=== PATIENT | female | born 1965 | race African-American/Black ===

== ENCOUNTER 2020-10-26 10:55 | Outpatient (REF) | payer OTHER, SELFPAY ==
--- NOTE | 2020-10-26 10:59 | US_ITS ---
EXAMINATION: US VENOUS ULTRASOUND WITH DOPPLER LOWER EXTREMITY, RIGHT and soft tissue ultrasound right lower extremity CLINICAL INFORMATION: Localized swelling, mass and lump COMPARISON: None TECHNIQUE: Ultrasound of the deep veins is performed from the hip to the calf with compression sonography and color and pulse Doppler assessment. Spectral analysis with color-flow imaging is performed. Grayscale and color imaging of the soft tissues in the area of abnormality medial lower leg. FINDINGS: There is normal venous compression and respiratory variation and augmented flow. The visualized common femoral vein, superficial femoral vein, profunda femoral vein, popliteal vein, and the trifurcation region shows no evidence of deep venous thrombosis. There is no significant popliteal fossa cyst. Ultrasound of the soft tissues in the medial lower leg demonstrates no solid or cystic soft tissue mass or fluid collection. US/US extremity nonvascular IMPRESSION: No DVT demonstrated in the right lower extremity. No soft tissue mass or fluid collection seen.
--- NOTE | 2020-10-26 10:59 | US_ITS ---
EXAMINATION: US VENOUS ULTRASOUND WITH DOPPLER LOWER EXTREMITY, RIGHT and soft tissue ultrasound right lower extremity CLINICAL INFORMATION: Localized swelling, mass and lump COMPARISON: None TECHNIQUE: Ultrasound of the deep veins is performed from the hip to the calf with compression sonography and color and pulse Doppler assessment. Spectral analysis with color-flow imaging is performed. Grayscale and color imaging of the soft tissues in the area of abnormality medial lower leg. FINDINGS: There is normal venous compression and respiratory variation and augmented flow. The visualized common femoral vein, superficial femoral vein, profunda femoral vein, popliteal vein, and the trifurcation region shows no evidence of deep venous thrombosis. There is no significant popliteal fossa cyst. Ultrasound of the soft tissues in the medial lower leg demonstrates no solid or cystic soft tissue mass or fluid collection. US/US venous duplex LE RT IMPRESSION: No DVT demonstrated in the right lower extremity. No soft tissue mass or fluid collection seen.
== END 2020-10-26 10:56 | disposition home or self-care (01) ==
LOC: HO.HMGCX 10:55
PROVIDERS: PCP Internal Medicine; Visit Provider Nurse Practitioner Family
DX: R22.40 Localized swelling, mass and lump, unspecified lower limb (principal)
CPT/HCPCS: 76882; 93971

== ENCOUNTER 2021-10-22 11:32 | Outpatient (REF) | payer OTHER, SELFPAY ==
[2021-10-22 13:49] LABS: MANUAL DIFF FLAG NO
[2021-10-22 13:54] LABS: Basophils Absolute Auto 0.1 X10*3/uL (0.0-0.2); Basophils Percent Auto 0.5 % (0-2); Eosinophils Absolute Auto 0.2 X10*3/uL (0.0-0.4); Eosinophils Percent Auto 1.9 % (0-4); Hematocrit 40.4 % (37.0-47.0); Imm Gran Abs Auto 0.03 X10*3/uL (0.00-0.03); Imm Gran Pct Auto 0.3 % (0.0-0.4); Lymphocytes Absolute Auto 2.9 X10*3/uL (1.2-4.9); Lymphocytes Percent Auto 24.8 % (20-40); Mean Corpuscular HGB Conc 32.2 g/dl (31.0-35.0); Mean Corpuscular Hemoglobin 26.5 pg (27.0-33.0); Mean Corpuscular Volume 82.3 fL (80.0-98.0); Mean Platelet Volume 10.7 fL (9.4-12.3); Monocytes Absolute Auto 0.8 X10*3/uL (0.1-1.2); Monocytes Percent Auto 6.9 % (2-11); Neutrophils Absolute Auto 7.6 x10*3/uL (2.0-8.3); Neutrophils Percent Auto 65.6 % (45-73); Platelet Count 316 X10*3/uL (160-400); Red Blood Count 4.91 X10*6/uL (4.20-5.50); Red Cell Distribution Width 14.4 % (11.0-16.0); White Blood Count 11.5 X10*3/uL (4.8-10.8)
[2021-10-22 14:51] LABS: Alanine Aminotransferase 17 U/L (0-31); Albumin Level 3.9 g/dL (3.5-5.0); Alkaline Phosphatase 125 U/L (39-117); Amylase 80 U/L (28-100); Anion Gap 10 (12-20); Aspartate Amino Transferase 15 U/L (5-31); Bilirubin Total 0.2 mg/dL (0.0-1.0); Blood Urea Nitrogen 15 mg/dL (9-16); Carbon Dioxide 27 mmol/L (22-29); Chloride 107 mmol/L (96-108); Cholesterol 275 mg/dL; Estimated Glomerular Filt Rate > 60; Glucose Fasting 75 mg/dL (60-99); HDL Cholesterol 61 mg/dL; LDL Cholesterol Calculated 198 mg/dl; Lipase 46 U/L (8-78); Potassium 4.6 mmol/L (3.3-5.1); Sodium 139 mmol/L (135-145); Total Protein 7.2 g/dL (6.5-8.0); Triglycerides 83 mg/dL
== END 2021-10-22 11:33 | disposition home or self-care (01) ==
LOC: HO.HMGCLDS 11:32
PROVIDERS: PCP Internal Medicine; Visit Provider Internal Medicine
DX: R10.9 Unspecified abdominal pain (principal); E78.5 Hyperlipidemia, unspecified; K21.9 Gastro-esophageal reflux disease without esophagitis; R14.0 Abdominal distension (gaseous)
CPT/HCPCS: 36415; 80053; 80061; 82150; 83690; 85025

== ENCOUNTER 2021-10-24 09:52 | Outpatient (REF) | payer OTHER, SELFPAY ==
[2021-10-24 11:23] LABS: MANUAL DIFF FLAG NO
[2021-10-24 11:28] LABS: Basophils Absolute Auto 0.1 X10*3/uL (0.0-0.2); Basophils Percent Auto 0.6 % (0-2); Eosinophils Absolute Auto 0.3 X10*3/uL (0.0-0.4); Eosinophils Percent Auto 2.1 % (0-4); Hemoglobin 13.6 g/dl (12.0-16.0); Imm Gran Abs Auto 0.05 X10*3/uL (0.00-0.03); Imm Gran Pct Auto 0.4 % (0.0-0.4); Lymphocytes Absolute Auto 3.4 X10*3/uL (1.2-4.9); Lymphocytes Percent Auto 25.2 % (20-40); Mean Corpuscular HGB Conc 31.6 g/dl (31.0-35.0); Mean Corpuscular Hemoglobin 26.3 pg (27.0-33.0); Mean Platelet Volume 10.8 fL (9.4-12.3); Monocytes Absolute Auto 0.8 X10*3/uL (0.1-1.2); Monocytes Percent Auto 5.6 % (2-11); Neutrophils Absolute Auto 8.9 x10*3/uL (2.0-8.3); Neutrophils Percent Auto 66.1 % (45-73); Platelet Count 348 X10*3/uL (160-400); Red Blood Count 5.18 X10*6/uL (4.20-5.50); Red Cell Distribution Width 14.4 % (11.0-16.0); White Blood Count 13.5 X10*3/uL (4.8-10.8)
[2021-10-24 11:59] LABS: Vitamin D 25-OH Total 9.7 ng/mL (>30)
[2021-10-24 12:02] LABS: Alanine Aminotransferase 17 U/L (0-31); Albumin Level 3.9 g/dL (3.5-5.0); Alkaline Phosphatase 132 U/L (39-117); Anion Gap 8 (12-20); Aspartate Amino Transferase 16 U/L (5-31); Bilirubin Total < 0.2 mg/dL (0.0-1.0); Blood Urea Nitrogen 23 mg/dL (9-16); Carbon Dioxide 27 mmol/L (22-29); Chloride 109 mmol/L (96-108); Estimated Glomerular Filt Rate 59; Glucose Random 88 mg/dL (60-115); Potassium 5.2 mmol/L (3.3-5.1); Sodium 139 mmol/L (135-145); Total Protein 7.1 g/dL (6.5-8.0)
[2021-10-24 12:16] LABS: Calcium 12.7 mg/dL (8.4-10.2)
[2021-10-25 14:07] LABS: Calcium (PTHI) 12.8 mg/dL (8.6-10.4); PTHI 304 pg/mL (14-64)
[2021-10-25 15:41] LABS: Calcium, Ionized 6.9 mg/dL (4.8-5.6)
== END 2021-10-24 09:53 | disposition home or self-care (01) ==
LOC: HO.HMGCLDS 09:52
PROVIDERS: PCP Internal Medicine; Visit Provider Nurse Practitioner Family
DX: E83.52 Hypercalcemia (principal); E87.5 Hyperkalemia
CPT/HCPCS: 36415; 80053; 82306; 82330; 83970; 85025

== ENCOUNTER 2021-11-19 15:10 | Emergency (ER) | payer OTHER, SELFPAY ==
--- NOTE | ~2021-11-19 | XR_ITS ---
EXAMINATION: XR WRIST, RIGHT CLINICAL INFORMATION: Wrist pain. COMPARISON: None TECHNIQUE: 4 views of the right wrist. FINDINGS: The bones and soft tissues are normal. No fracture. Alignment is anatomic with normal joint spaces. No erosions or abnormal soft tissue calcifications. XR/XR wrist RT 2V IMPRESSION: Normal right wrist.
[2021-11-19 16:47] VITALS: BP 134/62; PULSE 70; RESP 18; TEMP 37; O2SAT 99; BMI 30.9
--- NOTE | 2021-11-19 17:37 | ED_ITS ---
HPI - Extremity Problem General Chief complaint: Extremity Injury, Upper Stated complaint: wrist inj Time Seen by Provider: 11/19/21 17:21 Source: patient Mode of arrival: ambulatory Limitations: no limitations History of Present Illness HPI Narrative: Patient is a 56 year old female presenting to the emergency department today with right wrist pain. Patient states that she slipped and fell and is now having pain in her right wrist. Patient denies hitting her head in the incident. Patient denies any loss of consciousness with the incident. Patient denies any dizziness, lightheadedness, abdominal pain, nausea, vomiting, fever, chills, blurry vision, double vision, loss of vision, chest pain, difficulty breathing, shortness of breath, back pain, night sweats, pain with urination, increased urinary frequency, increased urinary urgency, blood in [his/her] urine or stool, syncope or a near syncopal episode, bowel incontinence, bladder incontinence, bowel retention, bladder retention, or any other complaints at this time. MD Complaint: extremity pain Onset (ago): hour(s) Pain Consistency: constant Location: right and other (wrist) Severity scale (1-10): 3 Quality: aching and dull Radiation: none Relieving factors: nothing Exacerbating factors: range of motion Associated symptoms: denies other symptoms Related Data Home Medications Medication Instructions Recorded Confirmed escitalopram oxalate 20 mg tablet 20 mg PO DAILY 10/26/20 10/22/21 hydroxyzine pamoate 50 mg capsule 50 mg PO TID 10/26/20 10/22/21 oxcarbazepine 600 mg tablet 600 mg PO BID 10/26/20 10/22/21 gabapentin 100 mg capsule 100 mg PO DAILY 01/04/21 10/22/21 prazosin 5 mg capsule 10 mg PO BEDTIME 10/22/21 10/22/21 Previous Rx's Medication Instructions Recorded indomethacin 25 mg capsule 25 mg PO BID PRN #14 cap 01/04/21 dicyclomine 20 mg tablet 20 mg PO TID #90 tab 10/22/21 cholecalciferol (vitamin D3) 1,250 1,250 mcg PO QWEEK #12 cap 10/24/21 mcg (50,000 unit) capsule pantoprazole 40 mg tablet,delayed 40 mg PO DAILY #30 tab 11/18/21 release Allergies Allergy/AdvReac Type Severity Reaction Status Date / Time povidone-iodine Allergy Unknown RASH Verified 10/22/21 11:15 [From BETADINE] soap [From BETADINE] Allergy Unknown RASH Verified 10/22/21 11:15 Review of Systems Constitutional: Constitutional: Reports no additional constitutional complaints, Denies chills, Denies fever(s) and Denies night sweats Eyes: Eyes: Reports no additional eye complaints, Denies blurry vision, Denies change in vision, Denies diplopia, Denies eye discharge, Denies loss of vision and Denies eye pain ENT: Denies dizziness Cardiovascular: Cardiovascular: Reports no additional cardiovascular complaints, Denies chest pain, Denies lightheadedness, Denies Loss of Consciousness and Denies dyspnea Respiratory: Respiratory: Reports no additional respiratory complaints and Denies dyspnea Gastrointestinal: Gastrointestinal: Reports no additional gastrointestinal complaints, Denies abdominal pain, Denies melena, Denies hematochezia, Denies change in bowel habits and Denies change in stool character Genitourinary: Genitourinary: Denies hematuria, Denies urinary frequency, Denies dysuria, Denies urinary incontinence, Denies urinary hesitancy and Denies urinary urgency Musculoskeletal: Musculoskeletal: Reports no additional musculoskeletal complaints, Denies numbness and Denies tingling Comments: right wrist pain Neurologic: Denies dizziness, Denies loss of vision, Denies numbness and Denies tingling Psychiatric: Psychiatric: Reports no additional psychiatric complaints Endocrine: Endocrine: Reports no additional endocrine complaints Hematologic/Lymphatic: Hematologic/Lymphatic: Reports no additional hematologic/lymphatic complaints Allergic/Immunologic: Allergic/Immunologic: Reports no additional allergic/immunologic complaints [facility] Past Medical History Attestation statement: The following information was validated with the patient. Source: old records reviewed Medical History Alcoholism Dyslipidemia Gallstones History of cocaine use Hyperparathyroidism Lumbar disc herniation Pain of right lower extremity PTSD (post-traumatic stress disorder) Vitamin D deficiency Surgical History History of tubal ligation Family History Family History Father CVA (cerebral vascular accident) Essential hypertension Brother Crohn's disease Maternal Aunt Substance use disorder Mental health disorder Maternal Uncle Substance use disorder Mental health disorder Paternal Uncle Substance use disorder Mental health disorder Paternal Aunt Substance use disorder Mental health disorder Maternal Grandmother Mental health disorder Mother Mental health disorder Social History Social History Housing: Apartment Alcohol intake: former Patient Tobacco Use Status: Current everyday Tobacco user Cigarettes Per Day: 10 e-Cigarette/Vaping Use: Never Used Advance Directives: No Advance Directives Information Provided: No Patient : No service: No Current occupational status: student Physical Exam Vital Signs: Vital Signs: Last Vital Signs Temp 98.6 F 11/19/21 16:47 Pulse 70 11/19/21 16:47 Resp 18 11/19/21 16:47 BP 134/62 11/19/21 16:47 Pulse Ox 99 11/19/21 16:47 BMI result Body Mass Index 30.9 Const: General: cooperative, no acute distress, alert and awake Nutritional Appearance: well nourished Orientation/consciousness: patient oriented x3 Limitations: no limitations HENMT: Head: Yes normal to inspection and Yes atraumatic Ears: hearing grossly normal bilaterally and external ears normal General nose exam: Normal external nose present, no nasal discharge noted and no epistaxis Face and sinus: Yes normal facial exam, No abrasion and No laceration Mouth: Normal oral and palatal mucosa present, no drooling and no muffled voice Eyes: General: appearance normal, both eyes and all related structures Periorbital: periorbital findings normal Eyelids: Yes eyelids normal Conjunctivae: conjunctivae normal Pupils: Equal, round and reactive pupils present EOM: EOMs intact bilaterally Neck: Neck: Yes normal visual inspection, Yes full ROM and Yes no lymphadenopathy Chest: Chest palpation & inspection: normal inspection of the chest Resp: Effort & Inspection: normal respiratory effort and able to speak in complete sentences GI: Inspection: Yes normal to inspection Neuro: General: patient oriented x3 and moves all extremities Cranial nerves: Yes Equal, round and reactive pupils present Cognition (Neuro): normal cognition Motor exam (neuro): 5/5 motor strength present throughout Sensory Exam: Normal double simultaneous stimulation for sensation Coordination: [id number] test normal Extrem: Other: right wrist pain to palpation and movement General: Yes normal to inspection, Yes full ROM and Yes capillary refill normal Psych: Appearance: grossly normal Mental Status: mental status grossly normal Affect: normal affect Attitude: cooperative Thought process: Normal thought process present Thought content: Normal thought content present Insight: Good insight present (Psych) MDM - Extremity (Nontraumatic) MDM Narrative Medical decision making narrative: Patient is a 56 year old female presenting to the emergency department today with right wrist pain. Patient's physical exam showed tenderness to palpation and with movement of the right wrist but was otherwise unremarkable. Patient's ROM and PMS was intact to the right upper extremity. Patient's right wrist x-ray showed no acute process. I explained my physical exam findings as well as all test results to the patient. I answered all questions asked by the patient. Patient was placed in a velcro right wrist splint and in a right wrist sling, without incident. Patient's PMS was in tact prior to and after splint and sling placement. Patient stated that having the wrist in a sling and splint helped the pain significantly. I stressed the importance of the patient following up with her primary care provider and an orthopedist as needed. I stressed the importance of the patient returning to the emergency department immediately if her symptoms were to worsen or if she were to develop any dizziness, shortness of breath, difficulty breathing, chest pain, blurry vision, loss of vision, nausea, vomiting, abdominal pain, fever, chills, back pain, or any other complai nts. Patient verbalized agreement and understanding with this treatment plan and discharge. Differential Diagnosis Differential diagnosis: Unlikely gout (fracture, sprain, strain) Medical Records Attestation: I reviewed the patient's medical records. Imaging Data Wrist x-ray: Attestation: I personally reviewed and interpreted this imaging study as follows: Radiologist's impression: EXAMINATION: XR WRIST, RIGHT CLINICAL INFORMATION: Wrist pain.? COMPARISON: None? TECHNIQUE: 4 views of the right wrist. FINDINGS: The bones and soft tissues are normal. No fracture. Alignment is anatomic with normal joint spaces. No erosions or abnormal soft tissue calcifications.? XR/XR wrist RT 2V IMPRESSION: Normal right wrist. Dictated By: JOSHUA KENNEDY MD Signed By: Electronically signed by OJSHUA KENNEDY MD 11/19/21 1360 Procedures Orthopedic Splinting/Casting Injury #1: Side: right Upper Extremity Injury Location: wrist Upper Extremity Immobilizer: wrist splint (with sling) Discharge Plan Discharge Clinical Impression: Acute wrist pain, Sprain of wrist, right Patient Disposition: Home, Self-Care Instructions: Wrist Injury (ED) Additional Instructions: Call to schedule a follow up appointment with an Orthopedic provider. Follow up with your primary care provider. Return to the emergency department immediately if your symptoms worsen or if you develop any dizziness, shortness of breath, difficulty breathing, chest pain, blurry vision, loss of vision, nausea, vomiting, abdominal pain, fever, chills, back pain, or any other complaints. Prescriptions: No Action cholecalciferol (vitamin D3) 1,250 mcg (50,000 unit) capsule 1,250 mcg PO QWEEK Qty: 12 0RF pantoprazole 40 mg tablet,delayed release (DR/EC) 40 mg PO DAILY Qty: 30 1RF hydroxyzine pamoate 50 mg capsule 50 mg PO TID 0RF oxcarbazepine 600 mg tablet 600 mg PO BID 0RF escitalopram oxalate 20 mg tablet 20 mg PO DAILY 0RF gabapentin 100 mg capsule 100 mg PO DAILY 0RF indomethacin 25 mg capsule 25 mg PO BID PRN (Reason: foot pain) Qty: 14 0RF Rx Instructions: administer with food or milk prazosin 5 mg capsule 10 mg PO BEDTIME 0RF dicyclomine 20 mg tablet 20 mg PO TID Qty: 90 0RF Rx Instructions: take 15 mins ac Referrals: Audrey Polk MD [Primary Care Provider] - 2 days Larissa Patterson MD [Physician] - 2 days Print Language: Colombian
== END 2021-11-19 18:39 | disposition home or self-care (01) ==
PROVIDERS: Emergency Provider Emergency Medicine Emergency Medical Services; PCP Internal Medicine
DX: S63.501A Unspecified sprain of right wrist, initial encounter (principal); W01.0XXA Fall on same level from slipping, tripping and stumbling without subsequent striking against object, initial encounter; Y93.89 Activity, other specified; Y92.9 Unspecified place or not applicable; Y99.9 Unspecified external cause status
CPT/HCPCS: 73100; 99283; 99284

== ENCOUNTER → 2021-11-26 11:32 | Outpatient (BNVA) | payer OTHER, SELFPAY | PROVIDERS: PCP Internal Medicine; Referring Provider Internal Medicine; Visit Provider Physician Assistant ==

== ENCOUNTER 2021-11-26 12:21 | Outpatient (REF) | payer OTHER, SELFPAY ==
[2021-11-26 13:37] LABS: Blood Urea Nitrogen 11 mg/dL (9-16); Estimated Glomerular Filt Rate > 60
== END 2021-11-26 12:22 | disposition home or self-care (01) ==
LOC: HO.WFDLDS 12:21
PROVIDERS: Visit Provider Physician Assistant
DX: K21.9 Gastro-esophageal reflux disease without esophagitis (principal); R93.5 Abnormal findings on diagnostic imaging of other abdominal regions, including retroperitoneum
CPT/HCPCS: 36415; 82565; 84520; 99202

== ENCOUNTER 2021-12-17 14:05 | Outpatient (REF) | payer OTHER, SELFPAY ==
--- NOTE | ~2021-12-17 | CT_ITS ---
EXAMINATION: CT ABDOMEN AND PELVIS WITH CONTRAST CLINICAL INFORMATION: Abnormal findings on diagnostic imaging. COMPARISON: Ultrasound gallbladder abdomen 02/08/2020. TECHNIQUE: Multidetector volumetric images were obtained from the superior aspect of the liver through the pubic symphysis following administration 85 mL of Omnipaque 350 intravenous contrast. Sagittal and coronal reformatted images were obtained on the technologist's workstation. Oral contrast: No This CT examination was performed using dose optimization techniques as appropriate, variously including the following: *Automated exposure control *Adjustment of mA and/or kV according to patient size (this includes techniques or standardized protocols for targeted exams where dose is matched to indication/reason for exam; i.e. extremities or head) *Use of iterative reconstruction technique DLP: 1153 mGy-cm. FINDINGS: LUNG BASES: The lung bases are clear. The heart size is normal. LIVER, GALLBLADDER, AND BILIARY TREE: The liver is normal in size, shape, and attenuation. There are punctate 2 small hypodense nonenhancing liver lesions with largest partial exophytic lesion right hepatic lobe segment 7.8 x 6.8 cm and 8 Hounsfield units consistent with cysts. The gallbladder is contracted with a solitary dense radiopaque 1.3 cm calculi. PANCREAS: Unremarkable. SPLEEN: Unremarkable. ADRENAL GLANDS: Unremarkable. KIDNEYS AND URETERS: The kidneys are normal in size, shape, and attenuation. No hydronephrosis, hydroureter, or calculi seen. No perinephric stranding. There are bilateral renal cysts. Largest cyst midpole right kidney measures 2.6 cm. BLADDER: Unremarkable. GASTROINTESTINAL TRACT: There is scattered stool, diverticuli and gas seen in colon. Fluid filled nondilated small bowel loops are visualized. The stomach is prominent with moderate air-fluid level. There is pneumatosis like appearance but no pneumatosis suspected. ABDOMINAL WALL: No significant hernia is appreciated. LYMPH NODES: There are small shotty lymph nodes in the upper retroperitoneum. Also visualized are small mesenteric lymph nodes with largest one measuring 1.1 cm axial image 117/3. VASCULAR: The abdominal aorta is normal caliber. PELVIC VISCERA: Unremarkable. OSSEOUS STRUCTURES: No lytic or sclerotic process seen. There is degenerative L3-L4 disc disease. CT/CT abdomen pelvis w con IMPRESSION: No acute intra-abdominal process seen. Multiple liver cysts and renal cysts. No radiopaque urolith or hydroureteronephrosis. Fleischner guidelines were followed.
[2021-12-17] MEDS: Sorbitol/Mannit/Xanth Imaging 500 ML LIQUID 1500 ML PO (15:47)
[2021-12-17] MEDS: iohexoL 350 MG/ML 100 ML INFUS..BTL IV (15:47)
== END 2021-12-17 14:06 | disposition home or self-care (01) ==
LOC: HO.US 14:05
PROVIDERS: PCP Internal Medicine; Visit Provider Physician Assistant
DX: R93.5 Abnormal findings on diagnostic imaging of other abdominal regions, including retroperitoneum (principal)
CPT/HCPCS: 74177; Q9967

== ENCOUNTER 2022-01-02 10:42 | Day surgery (SDC) | payer OTHER, SELFPAY ==
--- NOTE | 2022-01-01 09:47 | HO.ANESPROP2 ---
Documented by User: Luz Colon NP 01/01/22 09:52 HPI - Anesthesia Eval Consult details Narrative: 56yo F for Upper Endoscopy and Colonoscopy Hx of ETOH and cocaine use disorder - ? last used PMFSH Active Problems Active Problems: All Active Problems (Updated 12/30/21 @ 08:15 by Malena Baer RN) Lower leg mass (Acute) GERD (gastroesophageal reflux disease) (Acute) Hypercalcemia (Acute) Abnormal CT of the abdomen (Acute) Vitamin D deficiency (Acute) Hyperparathyroidism (Acute) Dyslipidemia (Acute) Pain of right lower extremity (Acute) Gallstones (Acute) PTSD (post-traumatic stress disorder) (Acute) Past Medical History Medical History Abnormal CT of the abdomen Alcoholism Dyslipidemia Gallstones GERD (gastroesophageal reflux disease) History of cocaine use Hyperparathyroidism Lumbar disc herniation Pain of right lower extremity PTSD (post-traumatic stress disorder) Vitamin D deficiency Family History Family History Father CVA (cerebral vascular accident) Essential hypertension Brother Crohn's disease Maternal Aunt Substance use disorder Mental health disorder Maternal Uncle Substance use disorder Mental health disorder Paternal Uncle Substance use disorder Mental health disorder Paternal Aunt Substance use disorder Mental health disorder Maternal Grandmother Mental health disorder Mother Mental health disorder Surgical History Surgical History History of tubal ligation Social History Social History Housing: Apartment Alcohol intake: former Patient Tobacco Use Status: Current everyday Tobacco user Tobacco use type: Cigarette Cigarettes Per Day: 10 e-Cigarette/Vaping Use: Never Used service: No Current occupational status: student Meds Allergies Allergy/AdvReac Type Severity Reaction Status Date / Time povidone-iodine Allergy Unknown RASH Verified 11/26/21 11:34 [From BETADINE] soap [From BETADINE] Allergy Unknown RASH Verified 11/26/21 11:34 Home Medications Medication Instructions Recorded Confirmed Last Taken Type escitalopram oxalate 20 mg tablet 20 mg PO DAILY 10/26/20 12/30/21 Unknown History hydroxyzine pamoate 50 mg capsule 50 mg PO TID 10/26/20 12/30/21 Unknown History gabapentin 100 mg capsule 100 mg PO DAILY 01/04/21 12/30/21 Unknown History prazosin 5 mg capsule 10 mg PO BEDTIME 10/22/21 12/30/21 Unknown History pantoprazole 40 mg tablet,delayed 40 mg PO DAILY 11/26/21 12/30/21 Unknown History release Exam Exam Date and Time: January 01, 2022 0958 Pertinent Lab Results Pertinent Lab Results: Laboratory Tests 10/24/21 10/24/21 11/26/21 09:57 09:57 12:28 WBC 13.5 H Hgb 13.6 Hct 43.0 Plt Count 348 Sodium 139 Potassium 5.2 H Chloride 109 H Carbon Dioxide 27 BUN 11 D Creatinine 0.79 Assessment and Plan Assessment Anesthesia Assessment: Chart Reviewed Documented by User: Lauri Laguna MD 01/02/22 16:51 HPI - Anesthesia Eval Consult details Narrative: 56yo F for Upper Endoscopy and Colonoscopy Hx of ETOH and cocaine use disorder - As per patient has not used cocaine in a few years back pain radiation to right LE marijuana yesterday PMFSH Past Medical History Medical History Abnormal CT of the abdomen Alcoholism Dyslipidemia Gallstones GERD (gastroesophageal reflux disease) History of cocaine use Hyperparathyroidism Lumbar disc herniation Pain of right lower extremity PTSD (post-traumatic stress disorder) Vitamin D deficiency Family History Family History Father CVA (cerebral vascular accident) Essential hypertension Brother Crohn's disease Maternal Aunt Substance use disorder Mental health disorder Maternal Uncle Substance use disorder Mental health disorder Paternal Uncle Substance use disorder Mental health disorder Paternal Aunt Substance use disorder Mental health disorder Maternal Grandmother Mental health disorder Mother Mental health disorder Family history of problems with anesthesia: No Surgical History Surgical History History of tubal ligation History of Problems with Anesthesia: No Social History Social History Housing: Apartment Alcohol intake: former Patient Tobacco Use Status: Current everyday Tobacco user Tobacco use type: Cigarette Cigarettes Per Day: 10 e-Cigarette/Vaping Use: Never Used service: No Current occupational status: student Meds Allergies Allergy/AdvReac Type Severity Reaction Status Date / Time povidone-iodine Allergy Unknown RASH Verified 11/26/21 11:34 [From BETADINE] soap [From BETADINE] Allergy Unknown RASH Verified 11/26/21 11:34 Home Medications Medication Instructions Recorded Confirmed Last Taken Type escitalopram oxalate 20 mg tablet 20 mg PO DAILY 10/26/20 12/30/21 Unknown History hydroxyzine pamoate 50 mg capsule 50 mg PO TID 10/26/20 12/30/21 Unknown History gabapentin 100 mg capsule 100 mg PO DAILY 01/04/21 12/30/21 Unknown History prazosin 5 mg capsule 10 mg PO BEDTIME 10/22/21 12/30/21 Unknown History pantoprazole 40 mg tablet,delayed 40 mg PO DAILY 11/26/21 12/30/21 Unknown History release Exam Airway Mallampati Class: II TM Dist: >3cm Neck ROM: Full Loose/Missing/Broken Teeth: Yes (Chipped ) Heart: rrr Lungs: bl breath sounds Assessment and Plan Assessment Anesthesia Assessment: Anesthesia Plan Discussed Final Anesthetic Review Family History of Problems with Anesthesia: No History of Problems with Anesthesia: No NPO: Yes ASA Class: II Final Preanesthetic Review: Meds/Allgs Chart Reviewed, Consent Obtained/Reviewed and Anes Risks/Benef Reviewed Patient Risk: Intermediate Procedure Risk: Intermediate Anesthetic Plan Anesthetic Plan: MAC: Disposition: Standard PACU
--- NOTE | 2022-01-02 10:47 | P.HPSUR_ITS ---
Pre-Procedural Eval Section A Date of Service: 01/02/22 Section B Chief Complaint: abdominal pain, diarrhea and GERD Relevant Family History (Specify if Yes): No Relevant Social History: None Present Medications: see Short Stay Collaborative assessment Medical History: Significant History (Abnormal CT of the abdomen Alcoholism Dyslipidemia Gallstones GERD (gastroesophageal reflux disease) History of co lily use Hyperparathyroidism Lumbar disc herniation Pain of right lower extremity PTSD (post-traumatic stress disorder) Vitamin D deficiency) History of Previous Operations: Relevant previous surgery/procedure and date(s) ( History of tubal ligation) Allergies: Allergies Allergy/AdvReac Type Severity Reaction Status Date / Time povidone-iodine Allergy Unknown RASH Verified 11/26/21 11:34 [From BETADINE] soap [From BETADINE] Allergy Unknown RASH Verified 11/26/21 11:34 Review of Systems Sugical H&P ROS: Negative: Constitution, Cardiovascular, Respiratory, Neurological, Psychiatric, Hem-Onc, Allergic/Immunologic, Gastrointestinal, Genitourinary, Musculoskeletal, Integumentary, Endocrine and Eyes/Ears/Nose/Throat Exam Surgical H&P Exam: Normal: HEENT, Normal: Heart, Normal: Lungs, Normal: E xtremities, Normal: Abdomen, Normal: Skin and Normal: Neurological Plan Diagnosis/Plan: Unchanged I have reviewed the history and physical and performed a pertinent physical examination on my patient. No changes have occurred unless specified.
[2022-01-02 11:02] VITALS: BMI 30.9
[2022-01-02 11:20] VITALS: BP 91/64; PULSE 75; RESP 18; TEMP 36.6; O2SAT 97
[2022-01-02 11:38] VITALS: BP 91/64; PULSE 75; RESP 18; TEMP 36.6; O2SAT 97
[2022-01-02] MEDS: Lactated Ringers 1,000 ML 100 ML IVCONT (11:42)
--- NOTE | 2022-01-02 12:27 | PM.OP ---
Brief Operative Note Date of Service: 01/02/22 Pre-op diagnosis: diarrhea, abdominal pain, GERD Post-op diagnosis: same Procedure: see op note Surgeon: Rk Abdi MD Anesthesia: MAC Was an Catalyst Unit Operator used for this Procedure?: No Estimated blood loss (mL): 0 Condition: stable Disposition: PACU
--- NOTE | 2022-01-02 12:28 | W.PM.OPN ---
Operative Note Operative Note Date of Service: 01/02/22 Narrative: Operative Information Procedure Description: EGD, Colonoscopy Indication: [] Anesthesia: MAC FLEXIBLE TRANSORAL UPPER GASTROINTESTINAL ENDOSCOPY AND COLONOSCOPY PROCEDURE NOTE UPPER ENDOSCOPY Consent: Indications for the procedure and potential complications of bleeding, perforation, reaction to medications and missed diagnosis were discussed with the patient and informed consent was obtained. Instrument: Olympus GIF H 190 J mid size upper endoscope Monitoring: Vital signs and clinical assessment, continuous EKG monitoring, Pulse oximetry, Carbon Dioxide monitoring and blood pressure monitoring were done throughout the procedure. Procedure: The patient was placed in the left lateral decubitis position and pre-procedure medications were administered and a bite block was placed. The endoscope was inserted into the mouth and advanced under direct vision to the third part of duodenum. A careful inspection was made as the upper endoscope was withdrawn including a retroflexed examination of the proximal stomach; Findings and interventions are described below. Findings: Larynx:normal Esophagus: GE junction at 40 cm, diaphragm hiatus at 40 cm, schatzki ring noted with bogginess and erythema at GEJ, bx taken as well as random esophagus Stomach: Patchy gastritis. Biopsies were obtained. Grade 2 flap valve on retroflexed examination of the cardia. Duodenum: Several small ulcers in bulb with duodenitis and erythema, bx taken Intervention: Biopsies as noted above COLONOSCOPY Instrument: Olympus variable stiffness pediatric scope 190L Colonoscopy Monitoring: Vital signs and clinical assessment, continuous EKG monitoring, Pulse oximetry, Carbon Dioxide monitoring and blood pressure monitoring were done throughout the procedure. Colon withdrawal time was 13 minutes. Procedure: The patient was placed in the left lateral decubitis position and pre-procedure medications were administered. After a digital rectal examination of the ano-rectum, the video colonoscope was inserted into the rectum and advanced through the colon to the cecum/TI. The colonoscope was slowly withdrawn in a retrograde panoramic fashion and the colon mucosa was carefully examined including a retroflexed view of the rectum. Findings and interventions are described below. Procedure Difficulty:moderate Findings: Terminal Ileum- unable to intubate due to swelling and edema in cecum Cecum: mucosa with several erosions and small ulcers with edema and swelling with narrowing of the colon distal to the cecum Ascending Colon: erythema and edema in proximal ascending colon, few diverticula seen Transverse Colon -normal, bx taken Descending Colon:normal, bx taken Sigmoid Colon: normal, bx taken Rectum: Retroflexion with small internal hemorrhoids, grade I, bx taken Anorectum - normal Colon preparation: [place] Bowel Preparation Scale Right colon; 2 Transverse colon: 3 Left colon; 3 (0 = Unprepared colon segment with mucosa not seen due to solid stool that cannot be cleared. 1 = Portion of mucosa of the colon segment seen, but other areas of the colon segment not well seen due to staining, residual stool and/or opaque liquid. 2 = Minor amount of residual staining, small fragments of stool and/or opaque liquid, but mucosa of colon segment seen well. 3 = Entire mucosa of colon segment seen well with no residual staining, small fragments of stool or opaque liquid) Impression and Post Procedure Diagnosis: Endoscopy Findings: schatzki ring gastritis duodenal ucleration and erosions esophagitis Colonoscopy Findings: colitis, suspicious for crohns, ddx: infiltrative disease e.g sarcoid, amyloid, lymphoma, mastocytosis, eosinophilic colitis internal hemorrhoids Plan: Await Pathology results Repeat Colonoscopy in 1-2 yr or earlier if clinically indicated due to colitis Lo fiber diet avoid straining at stool, epsom salts and sitz bath, anusol supps or cream may consider CTe vs MRe or caspule endoscopy if crohns confirmed then will need biolgic, entyvio may be a good option Above findings were reviewed with the patient and relevant handouts were provided if indicated.
[2022-01-02 12:33] VITALS: BP 97/79; PULSE 91; RESP 16; TEMP 37.4; O2SAT 93
[2022-01-02 12:48] VITALS: BP 105/51; PULSE 75; RESP 18; TEMP 37.4; O2SAT 96
== END 2022-01-02 13:26 | disposition home or self-care (01) ==
PROVIDERS: PCP Internal Medicine; Visit Provider Internal Medicine Gastroenterology
PROC: (CPT 45380; principal; 2022-01-02 11:50)
DX: R93.5 Abnormal findings on diagnostic imaging of other abdominal regions, including retroperitoneum (principal); K57.30 Diverticulosis of large intestine without perforation or abscess without bleeding; K52.82 Eosinophilic colitis; K64.0 First degree hemorrhoids; K21.9 Gastro-esophageal reflux disease without esophagitis; K22.2 Esophageal obstruction; K26.9 Duodenal ulcer, unspecified as acute or chronic, without hemorrhage or perforation; K29.80 Duodenitis without bleeding; K29.50 Unspecified chronic gastritis without bleeding; K44.9 Diaphragmatic hernia without obstruction or gangrene; E78.5 Hyperlipidemia, unspecified; E21.3 Hyperparathyroidism, unspecified; E55.9 Vitamin D deficiency, unspecified; Z79.899 Other long term (current) drug therapy; F10.20 Alcohol dependence, uncomplicated; F14.11 Cocaine abuse, in remission; F17.210 Nicotine dependence, cigarettes, uncomplicated
CPT/HCPCS: 45380; 43239; 88305; 88342; J3010

== ENCOUNTER → 2022-01-21 15:08 | Outpatient (BNVA) | payer OTHER, SELFPAY | PROVIDERS: PCP Internal Medicine; Visit Provider Physician Assistant | DX: K29.80 Duodenitis without bleeding (principal); K26.9 Duodenal ulcer, unspecified as acute or chronic, without hemorrhage or perforation; K29.70 Gastritis, unspecified, without bleeding; K57.90 Diverticulosis of intestine, part unspecified, without perforation or abscess without bleeding; K59.00 Constipation, unspecified; K21.9 Gastro-esophageal reflux disease without esophagitis; Z79.899 Other long term (current) drug therapy; Z98.890 Other specified postprocedural states | CPT/HCPCS: 99212 ==

== ENCOUNTER 2022-02-05 08:43 | Outpatient (REF) | payer OTHER, SELFPAY ==
[2022-02-05 10:02] LABS: Blood Urea Nitrogen 16 mg/dL (9-16); Estimated Glomerular Filt Rate > 60; Iron 46 mcg/dL (30-160); Percent Iron Saturation 13 % (15-50); Potassium 4.8 mmol/L (3.3-5.1); Total Iron Binding Capacity 358 mcg/dL (228-428); Unsaturated Iron Binding 312 ug/dL
[2022-02-05 10:18] LABS: HBS Num1 89.39 mIU/mL (0-7.99); HBc Num1 0.08 S/CO (0.00-0.79); HBsAGNum1 0.17 S/CO (0.00-0.99); Hepatitis A Antibody IgM 0.25 Index (0-0.79); Hepatitis B Core Antibody Nonreactive (Nonreactive); Hepatitis B Surface Antigen Negative (Negative); ~HepC Num1 0.13 S/CO (0.00-0.79); ~Hepatitis A Antibody IgM Nonreactive (Nonreactive); ~Hepatitis B Surface Antibody REACTIVE (Nonreactive); ~Hepatitis C Antibody Nonreactive (Nonreactive)
[2022-02-05 10:23] LABS: Vitamin D 25-OH Total 15.3 ng/mL (>30)
[2022-02-05 10:40] LABS: Folate 4.8 ng/mL (> or = 4.0); Vitamin B12 374 pg/mL (200-900)
[2022-02-07 15:01] LABS: TS Negative Control Passed; TS Panel A 0; TS Panel B 1; TS Positive Control Passed; TSpotTB Negative (Negative)
[2022-02-09 18:36] LABS: EBV Source Whole Blood
[2022-02-11 20:57] LABS: Zinc 88 mcg/dL (60-130)
[2022-02-14 22:11] LABS: Parathyroid Hormone Related Pr 13 pg/mL (11-20)
== END 2022-02-05 08:44 | disposition home or self-care (01) ==
LOC: HO.LAB 08:43
PROVIDERS: PCP Internal Medicine; Visit Provider Physician Assistant
DX: R93.5 Abnormal findings on diagnostic imaging of other abdominal regions, including retroperitoneum (principal); K59.00 Constipation, unspecified; K21.9 Gastro-esophageal reflux disease without esophagitis; E83.52 Hypercalcemia; D64.9 Anemia, unspecified; R93.3 Abnormal findings on diagnostic imaging of other parts of digestive tract; E55.9 Vitamin D deficiency, unspecified; R79.89 Other specified abnormal findings of blood chemistry; E78.5 Hyperlipidemia, unspecified
CPT/HCPCS: 36415; 82306; 82565; 82607; 82746; 83519; 83540; 84132; 84520; 84630; 86481; 86704; 86706; 86709; 86803; 87340; 87798

== ENCOUNTER 2022-02-17 13:40 | Outpatient (REF) | payer OTHER, SELFPAY ==
--- NOTE | ~2022-02-17 | CT_ITS ---
EXAMINATION: CT ENTEROGRAPHY ABDOMEN AND PELVIS WITH NONCONTRAST CLINICAL INFORMATION: Iron deficiency COMPARISON: Previous CT of the abdomen and pelvis November 2021 TECHNIQUE: Study performed with oral VoLumen (1350 mL) and 480 mL of water to distend the abdomen. The patient was injected with 85 mL Omnipaque 350 intravenous contrast which was administered without adverse effect. Coronal and sagittal reformatted images were obtained at the technologist's workstation. This CT examination was performed using dose optimization techniques as appropriate, variously including the following: *Automated exposure control *Adjustment of mA and/or kV according to patient size (this includes techniques or standardized protocols for targeted exams where dose is matched to indication/reason for exam; i.e. extremities or head) *Use of iterative reconstruction technique DLP: 563 mGy-cm FINDINGS: GASTROINTESTINAL FINDINGS: Stomach: Well-distended and normal in appearance. Small intestine: There is edema in the wall of the terminal ileum. There is mild dilatation of the terminal ileum. The coastal enhancement cannot be assessed without IV contrast however appearance is suggestive of active inflammation. Large intestine: Nonspecific fatty deposition in the wall of the cecum. Mild diverticulosis of the colon. No evidence of active colitis or diverticulitis. Normal appendix. Increased left perianal soft tissue questionable for inflammation or fissure. Additional findings: No abnormal enhancement of the vasa recta or significant mesenteric or retroperitoneal lymphadenopathy is seen. No abdominal abscess or fistulous tract demonstrated. ABDOMINAL AND PELVIC CT FINDINGS: Liver, gallbladder, biliary tract: There are multiple liver cysts. There is a gallstone in the gallbladder. There is no biliary duct dilatation. Pancreas: Normal Spleen: Normal Adrenal glands and kidneys: Right renal cyst stable from previous exam. No imaging follow-up needed. Kidneys are otherwise unremarkable. Ureters and bladder: Bladder not optimally distended. Lymphovascular structures: [place] retroperitoneal and small bowel mesentery lymphadenopathy. Mild atherosclerotic disease. No ascites. Small umbilical hernia containing fat. Normal pelvic vessels. Bones: There is degenerative disc disease at L3-L4. Lung bases: Normal. CT/CT enterography IMPRESSION: Wall edema and mild distention of the terminal ileum. Mucosal enhancement cannot be assessed without IV contrast however appearance is suspicious for active inflammation. Fatty deposition in the wall of the cecum. This is a not optimally seen with old colitis. Diverticulosis. No evidence of active colitis or diverticulitis. Question small fissure or postinflammatory change in the left perianal region. [place] small bowel mesentery and retroperitoneal lymph nodes. Liver and right renal cysts. Gallstones.
[2022-02-17] MEDS: Sorbitol/Mannit/Xanth Imaging 500 ML LIQUID 1500 ML PO (15:25)
== END 2022-02-17 13:41 | disposition home or self-care (01) ==
LOC: HO.US 13:40
PROVIDERS: Visit Provider Physician Assistant
DX: E61.1 Iron deficiency (principal)
CPT/HCPCS: 74176; 74177

== ENCOUNTER 2022-03-26 14:33 | Outpatient (REF) | payer OTHER, SELFPAY ==
--- NOTE | ~2022-03-26 | XR_ITS ---
EXAMINATION: XR ABDOMEN KUB CLINICAL INDICATION: Abnormal finding on CT enterography of 02/17/2022. COMPARISON: 02/17/2022 and 02/16/2022 TECHNIQUE: AP view of the abdomen. FINDINGS: No dilated loops of large or small bowel are evident. No bowel wall thickening is appreciated on this plain film study. No significant stool burden is identified. Psoas margins are intact. 1.3 cm gallstone is present. Phleboliths are seen about the pelvis. No definite renal or ureteral calculi are appreciated. XR/XR KUB IMPRESSION: Cholelithiasis. No evidence of bowel ileus or obstruction.
== END 2022-03-26 14:34 | disposition home or self-care (01) ==
LOC: HO.XRAY 14:33
PROVIDERS: PCP Internal Medicine; Visit Provider Internal Medicine Gastroenterology
DX: R93.5 Abnormal findings on diagnostic imaging of other abdominal regions, including retroperitoneum (principal)
CPT/HCPCS: 74018

== ENCOUNTER → 2022-04-14 08:05 | Outpatient (BNVA) | payer OTHER, SELFPAY | PROVIDERS: PCP Internal Medicine; Visit Provider Internal Medicine Gastroenterology | DX: K22.10 Ulcer of esophagus without bleeding (principal); K50.00 Crohn's disease of small intestine without complications; K26.9 Duodenal ulcer, unspecified as acute or chronic, without hemorrhage or perforation | CPT/HCPCS: 91110 ==

== ENCOUNTER → 2022-11-24 10:40 | Outpatient (BNVA) | payer OTHER, SELFPAY | PROVIDERS: PCP Internal Medicine; Visit Provider Internal Medicine Gastroenterology | DX: K50.90 Crohn's disease, unspecified, without complications (principal) | CPT/HCPCS: 99212 ==

== ENCOUNTER → 2023-03-16 10:25 | Outpatient (BNVA) | payer OTHER, SELFPAY | PROVIDERS: Visit Provider Internal Medicine Gastroenterology | DX: K50.90 Crohn's disease, unspecified, without complications (principal) | CPT/HCPCS: 99212 ==

== ENCOUNTER 2023-05-20 11:41 | Outpatient (AMB) | payer OTHER, SELFPAY ==
[2023-05-20 11:48] VITALS: BP 132/70; PULSE 76; O2SAT 97; BMI 26.4
--- NOTE | 2023-05-20 11:48 | MHC.PC.OV ---
Vital Signs 05/20/23 11:48 Height 5 ft 4 in Weight 154 lb BMI 26.4 BP 132/70 Blood Pressure Location Rt brachial Position Sitting Pulse 76 Pulse Source Pulse Oximeter Pulse Oximetry (%) 97 Intake Visit Reasons: hip pain Intake Note: pt is here hip pain Cesspool Cleaner Required: No Accompanied by: Self / Same As Patient Allergies povidone-iodine [From BETADINE] Allergy (Unknown, Verified 05/20/23 12:00) RASH soap [From BETADINE] Allergy (Unknown, Verified 05/20/23 12:00) RASH Medication List - Last Reconciled 05/20/23 by Audrey Polk MD adalimumab 40 mg (0.4 mL) subcut Q2W buspirone 5 mg PO TID gabapentin 300 mg PO DAILY lamotrigine 50 mg PO BEDTIME nicotine 1 patch transdermal Q24H 6 weeks pantoprazole 40 mg PO DAILY polyethylene glycol 3350 (Miralax) 17 grams PO DAILY quetiapine 25 - 50 mg PO BEDTIME PRN Tobacco use date assessed: 05/20/23 Dental Screening Dental Screen Date: 05/20/23 Did you have a dental visit in the last 12 months?: Yes Did you have a dental problem in the last 6 months where you did not have access to dental care?: No Was dental information given to patient?: Patient has dentist HPI hip pain HPI Details 57-year-old lady with Crohn's disease currently on Humira, here today complaining of progressive hip pain bilaterally, present for the last several months. Denies any trauma, or strenuous exertion. Has been taking acetaminophen every now and then which affords only temporary relief. Has been having hard time going up and down stairs or walking for extended periods of time. Sitting on a hard surface also aggravates her pain. [facility] Medical History (Updated 05/20/23 @ 12:21 by Audrey Polk MD) Alcoholism Bilateral hip pain Dyslipidemia Gallstones GERD (gastroesophageal reflux disease) History of cocaine use Hyperparathyroidism Lumbar disc herniation PTSD (post-traumatic stress disorder) Vitamin D deficiency Surgical History History of esophagogastroduodenoscopy (EGD) History of tubal ligation Hx of colonoscopy Family History Father CVA (cerebral vascular accident) Essential hypertension Brother Crohn's disease Maternal Aunt Substance use disorder Mental health disorder Maternal Uncle Substance use disorder Mental health disorder Paternal Uncle Substance use disorder Mental health disorder Paternal Aunt Substance use disorder Mental health disorder Maternal Grandmother Mental health disorder Mother Mental health disorder Social History Housing: Apartment Alcohol intake: former Patient Tobacco Use Status: Current everyday Tobacco user Tobacco use type: Cigarette Cigarettes Per Day: 10 e-Cigarette/Vaping Use: Never Used service: No Current occupational status: student Review of Systems Const All systems reviewed & are unremarkable except as noted in HPI and below Physical exam (Primary Care) Vital Signs: Last Vital Signs Pulse 76 05/20/23 11:48 BP 132/70 05/20/23 11:48 Pulse Ox 97 05/20/23 11:48 BMI result Body Mass Index 26.4 Tobacco/Smoking Status: Tobacco use Status Tobacco use date assessed 05/20/23 05/20/23 11:49 Patient Tobacco Use Status Current everyday Tobacco 05/20/23 11:49 Tobacco use type Cigarette 05/20/23 11:49 e-Cigarette/Vaping Use Never Used 05/20/23 11:49 Tobacco cessation counseling provided: Yes Relapse Prevention: discussed extending NRT and discussed negative mood or depression after quitting Number of minutes spent counselin CPT code: Less than 3 minutes Const Other: Alert oriented x3, no acute distress noted ambulatory normal gait Nutritional Appearance: overweight Orientation/consciousness: patient oriented x3 HENMT Head: Yes normocephalic Neck Neck: Yes full ROM, Yes no lymphadenopathy and Yes supple Back/Spine/Pelvis Other: Tenderness along paraspinal muscles in lumbar area, Thoracic/Lumbar Spine: straight leg raise negative bilaterally Skin Other: Tattoo lower back Neuro General: patient oriented x3, gait normal, tone normal, moves all extremities and no focal motor deficits Extrem Other: Tenderness on palpation over lateral aspect of both hip, able to squat but with some difficulty General: Yes full ROM, Yes no joint enlargement, Yes no pedal edema and Yes normal gait Assessment and Plan Assessment & Plan (1) Bilateral hip pain: Code(s): M25.551 - Pain in right hip; M25.552 - Pain in left hip Plan: Ordered x-ray of bilateral hip, advised to start taking Tylenol arthritis 650 mg per tablet may take 1 tablet every 8 hours as needed for joint pain. Call if no improvement of symptoms noted Orders: Orders XR hip BI w PEL1V Today M25.551 - Pain in right hip, M25.552 - Pain in left hip Coding Level of Care Code Est Pt Level 3 (49497) Diagnoses Bilateral hip pain M25.551; M25.552
== END 2023-05-20 13:16 | disposition home or self-care (01) ==
PROVIDERS: PCP Internal Medicine; Visit Provider Internal Medicine
DX: M25.551 Pain in right hip (principal); M25.552 Pain in left hip
CPT/HCPCS: 99213

== ENCOUNTER 2023-05-20 12:23 | Outpatient (REF) | payer OTHER, SELFPAY ==
--- NOTE | ~2023-05-20 | XR_ITS ---
EXAMINATION: XR BILATERAL HIPS WITH AP PELVIS CLINICAL INFORMATION: Pain in the right hip COMPARISON: None available. TECHNIQUE: AP view of the pelvis and single views of each hip were obtained. FINDINGS: No fracture. Hip joint spaces are maintained. Alignment is anatomic. Sacroiliac joints and pubic symphysis are normal. No abnormal soft tissue calcifications. XR/XR hip BI w PEL1V IMPRESSION: Normal pelvis and hips.
== END 2023-05-20 12:24 | disposition home or self-care (01) ==
LOC: HO.HMGCX 12:23
PROVIDERS: PCP Internal Medicine; Visit Provider Internal Medicine
DX: M25.551 Pain in right hip (principal); M25.552 Pain in left hip
CPT/HCPCS: 73521